=== PATIENT | female | born 1965 | race Two or more races ===

== ENCOUNTER → 2016-06-21 | Outpatient (CLI) | payer BC ==
--- NOTE | ~2016-06-21 | MY11 ---
[facility] A Service of [facility] RADIOLOGY TEXT RESULTS PATIENT: NABEEL AYALA LOCATION: [facility] : 63 UNIT #: [id number] AGE: [address]: Kiet Santoyo MD SEX: F ORDER DR: [id number] [facility] [address] [place], [place] [address] [id number] O MR#: [id number] Acc #: [id number] NAME: NABEEL AYALA : 1965 SEX: F STUDY DATE/TIME: 06/21/2016 14:48 UNIT: [facility] ROOM: STUDY DESCRIPTION: MY Mammogram Screening Dig Micha Attending Physician: Kiet Santoyo M.D. Ordering Physician: Kiet Santoyo M.D. Primary Care Physician: Kiet Santoyo M.D. MEDICAL IMAGING REPORT This report is preliminary unless electronic signature is present EXAM Digital screening mammogram, 06/21/2016 HISTORY 50 year old woman no risk elevation. Annual screening. COMPARISON 05/23/2010, 04/09/2014 FINDINGS Digital imaging of each breast was completed utilizing a two-view examination of each breast in craniocaudal and mediolateral-oblique projections. Review and interpretation of digital mammograms include a second review in conjunction with FDA-approved CAD device. There is a normal parenchymal presentation bilaterally consistent with the patient's age. There are no breast masses imaged and no parenchymal asymmetry is visualized. There are no suspicious microcalcifications and I see no focal architectural disturbance. IMPRESSION Negative screening digital mammogram. One-year followup recommended. Patients over the age of 40 are entered into a reminder system with target due date for the next mammogram. A result letter will also be sent to the patient. BIRADS: 1 Negative Dictated by... Jose Genao M.D. THIS IS AN ELECTRONICALLY VERIFIED REPORT Jose Genao M.D. at 06/22/2016 8:06 AM [facility] A Service [facility] RADIOLOGY TEXT RESULTS PATIENT: NABEEL AYALA LOCATION: [facility] : 63 UNIT #: [id number] AGE: [address]: Kiet Santoyo MD SEX: F ORDER DR: NELA/aron TD: 06/21/2016 15:23 JOB #: [id number] MEDICAL IMAGING REPORT Page 1 of 1 COPY
== END | disposition home or self-care (01) ==
LOC: CWCC 14:24
DX: Z12.31 Encounter for screening mammogram for malignant neoplasm of breast (principal)
CPT/HCPCS: G0202